=== PATIENT | male | born 1950 | race Hispanic/Latino ===

== ENCOUNTER 2019-09-04 12:20 | Emergency (ER) | payer OTHER ==
[2019-09-04 13:06] LABS: BASOPHILS % (AUTO) 0.9 % (0.0-5.0); EOSINOPHILS % (AUTO) 0.3 % (0.0-8.0); HEMATOCRIT 31.9 % (42-54); LYMPHOCYTES % (AUTO) 12.1 % (21.0-51.0); MEAN CORPUSCULAR HEMOGLOBIN 26.9 pg (27.0-33.0); MEAN CORPUSCULAR HGB CONC 32.7 g/dL (32.0-36.0); MEAN CORPUSCULAR VOLUME 82.4 fL (79-99); MONOCYTES % (AUTO) 7.1 % (3.0-13.0); NEUTROPHILS % (AUTO) 79.6 % (40.0-77.0); PLATELET COUNT (AUTO) 384 K/uL (130-400); RED BLOOD CELL COUNT(AUTO) 3.87 MIL/uL (4.50-6.20); RED CELL DISTRIBUTION WIDTH 18.2 % (11.0-15.5); WHITE BLOOD COUNT (AUTO) 9.8 K/uL (4.8-10.8)
[2019-09-04 13:08] LABS: ABG BASE EXCESS 0.6 mmol/L (-2.0-3.0); ABG HCO3 23.7 mmol/L (21.0-28.0); ABG OXYGEN SATURATION 93.6 % (95.0-99.0); ABG PCO2 34 mmHg (35-48)
[2019-09-04 13:14] LABS: CREATININE 0.8 mg/dL (0.5-1.5); POTASSIUM 4.1 mmol/L (3.5-5.1)
[2019-09-04 13:16] LABS: INR 1.07 (0.85-1.15); PARTIAL THROMBOPLASTIN TIME 32.7 SEC (26.3-35.5); PROTHROMBIN TIME 11.2 SEC (9.6-11.6)
[2019-09-04 13:18] LABS: ALBUMIN 1.9 g/dL (3.5-5.0); BILIRUBIN,TOTAL 0.6 mg/dL (0.2-1.0); TOTAL PROTEIN, SERUM 7.2 g/dL (6.0-8.3)
== END 2019-09-04 13:57 | disposition home or self-care (01) ==
LOC: EDH 12:20
DX: I95.9 Hypotension, unspecified (principal); J44.9 Chronic obstructive pulmonary disease, unspecified; Z72.0 Tobacco use
CPT/HCPCS: 36415; 36600; 71045; 80053; 82803; 83880; 84484; 85025; 85610; 85730; 93005

== ENCOUNTER 2019-11-20 12:35 | Inpatient (IN) | payer OTHER ==
[~2019-11-20] VITALS: Ht 170.2 cm; Wt 68.0 kg
[~2019-11-20 12:35] MED LIST: ALBU6.7H9 IH; ESOM20CA39 PO; IPRA21SP NS; MIDO2.5T PO; MIRT15TA6 PO; MULT-1192 PO; OXYB5 PO; PRED20TA3 PO; UMEC1DIS IH
[2019-11-20 15:30] VITALS: BP 111/65
--- NOTE | 2019-11-20 16:45 | NUR ---
REPORT GIVEN TO YG RICARDO, TRANSFERRED TO ROOM 322 VIA BED, TO BE UNDER HOSPICE CARE, COMFORT MEASURES
[2019-11-20] MEDS ORDERED: BISACODYL 10 MG SUPP.RECT RC PRN (17:00)
[2019-11-20] MEDS ORDERED: MORPHINE SULFATE 2 MG/ML 1ML SYG IVP PRN ×3 (17:00)
[2019-11-20] MEDS ORDERED: ONDANSETRON HCL 4 MG/2 ML VIAL IVP PRN (17:00)
[2019-11-20] MEDS ORDERED: MORPHINE SULFATE 2 MG/ML 1ML SYG IVP SCH (17:00)
[2019-11-20] MEDS ORDERED: ACETAMINOPHEN 650 MG SUPPOSITORY RC PRN (17:00)
[2019-11-20] MEDS ORDERED: LORAZEPAM 2 MG/ML 1 ML VIAL IVP SCH (17:00)
--- NOTE | 2019-11-20 17:00 | NUR ---
Pt rec'd from ICU via bed without incident ; resp even and unlabored at rest. Bipap in place, family at bedside. Comfort measures in effect. Pt resting with eyes closed.
[2019-11-20 17:03] VITALS: BP 115/66
[2019-11-20 19:00] VITALS: BP 115/63
[2019-11-20] MEDS: LORAZEPAM 2 MG/ML 1 ML VIAL IVP PRN (20:17)
[2019-11-20 23:00] VITALS: BP 118/72
[2019-11-21] MEDS: LORAZEPAM 2 MG/ML 1 ML VIAL IVP PRN (04:21)
--- NOTE | 2019-11-21 05:30 | NUR ---
Nursing Note Pt at 0446 and called by [facility] supervisor [facility] contacted at 0505, spoke with jt Quiroz reference number [id number]. [facility] to call [facility] pt. 0510 family left with pt's belonging and stated they were done, no other people coming 0513 Eyal was informed and stated he would sign the documentation of [facility] called at 0530 and stated they would contact the family to see if they are interested in donations but to put body in morgue until they can arrive.
== END 2019-11-21 04:46 | disposition expired | DRG 180 ==
LOC: 2BH 12:35 → 3DH 17:11
PROVIDERS: ADMIT Internal Medicine Hematology & Oncology; ATTEND Internal Medicine Hematology & Oncology
PROC: 5A09357 Assistance with Respiratory Ventilation, Less than 24 Consecutive Hours, Continuous Positive Airway Pressure (ICD-10-PCS; principal; 2019-11-20)
DX: C34.90 Malignant neoplasm of unspecified part of unspecified bronchus or lung (principal); J96.90 Respiratory failure, unspecified, unspecified whether with hypoxia or hypercapnia; C78.7 Secondary malignant neoplasm of liver and intrahepatic bile duct; J44.9 Chronic obstructive pulmonary disease, unspecified; I25.10 Atherosclerotic heart disease of native coronary artery without angina pectoris; I10 Essential (primary) hypertension; F17.200 Nicotine dependence, unspecified, uncomplicated; I73.9 Peripheral vascular disease, unspecified; Z51.5 Encounter for palliative care
CPT/HCPCS: G0378; J2060